=== PATIENT | female | born 2000 | race Caucasian/White ===

== ENCOUNTER 2023-05-28 13:34 | Outpatient (AMB) | payer OTHER, SELFPAY ==
[2023-05-28 13:35] VITALS: BP 102/68; PULSE 84; O2SAT 99; BMI 21.5
--- NOTE | 2023-05-28 13:35 | A.OFFPC_ITS ---
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 Accompanied by: Self / Same As Patient Allergies No Known Allergies Allergy (Verified 05/28/23 14:28) Medication List - Last Reconciled 05/28/23 by Jack Florian MD levonorgestrel-ethinyl estrad 0.1-20 mg-mcg (Vienva) 1 tab PO DAILY Tobacco use date assessed: 05/28/23 Dental Screening Dental Screen Date: 05/28/23 Did you have a dental visit in the last 12 months?: Yes Did you have a dental problem in the last 6 months where you did not have access to dental care?: No Was dental information given to patient?: Patient has dentist 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 Details Patient comes in today to establish care - is a new patient to the practice States that she has a history of asthma growing up but has never really had to use her rescue inhaler often until she contracted COVID last year Has been experiencing frequent asthma flare ups since States that she has not had any rescue inhaler as she has not seen her doctor in over 5 years now (due to some insurance issues/changes and she was not able to see her doctor again since) and she has just been using some OTC Primatene mist lately, with some relief of her asthma symptoms Adds that she has a history of migraine headaches and has been experiencing frequent headaches lately Is also concerned that she may be prediabetic as she has noticed over the past year that she has symptoms of increased fatigue, frequent thirst, urinary frequency and nocturia and she feels hungry often but she never feels full whenever she eats States that she has 2 uncles who has diabetes but no one else in her immediate family is a diabetic Relates also (+) Hx of anxiety and states that she used to be on Citalopram 20 mg QD but stopped taking her Rx when it ran out about 5 years ago and she could not get it refilled; would like to see if she can be started back on her Rx States that she is currently only taking her control pill (to help regulate her period) and she has been getting it from an online prescription website for the past 3 years States that menstrual periods are regular She denies any fever or sore throat; denies any headaches or dizziness Denies any chest pains No nausea/vomiting, no abdominal pain No change in habits noted She denies any acute urinary symptoms PFSH Medical History (Updated 05/29/23 @ 05:57 by Jack Florian MD) Anxiety Migraine Asthma Surgical History (Updated 05/28/23 @ 14:33 by Jack Florian MD) No pertinent past surgical history Family History (Updated 05/29/23 @ 05:44 by Jack Florian MD) Paternal Uncle Diabetes Other Bipolar 1 disorder Social History Housing: House Patient Tobacco Use Status: Never used Tobacco e-Cigarette/Vaping Use: Never Used service: No Current occupational status: employed Cognitive needs: No Hearing needs: No Vision needs: No Female Reproductive History Menstrual control method: pills Questionnaire PHQ-9 Over the last 2 weeks, how often have you been bothered by any of the following problems? 1. Little interest or pleasure in doing things: not at all 2. Feeling down, depressed, or hopeless: not at all 3. Trouble falling or staying asleep, or sleeping too much: not at all 4. Feeling tired or having little energy: not at all 5. Poor appetite or overeating: not at all 6. Feeling bad about yourself - or that you are a failure or have let yourself or your family down: not at all 7. Trouble concentrating on things, such as reading the newspaper or watching television: not at all 8. Moving or speaking so slowly that other people could have noticed. Or the opposite - being so fidgety or restless that you have been moving around a lot more than usual: not at all 9. Thoughts that you would be better off or of hurting yourself in some way: not at all Total score: 0 Depression Screening Interpretation: Negative [id number] - PHQ-9 Billing: Yes Source: Developed by Drs. Sang Bell, Natalia Alvarez, Robinson Todd and colleagues, with an educational priti from [employer]. Thrive Questionnaire Date Thrive assessed: 05/28/23 I am a: Patient What is your living situation today?: I have a steady place to live Within the past 12 months, did the food you bought not last and you didn't have the money to get more?: Never true Within the past 12 months, did you worry whether your food would run out before you got money to buy more?: Never true Do you have trouble paying for medicines?: No Do you have trouble getting transportation to medical appointments?: No Do you have trouble paying your heating and electricity bill?: No Do you have trouble taking care of your child, family member or friend?: No Do you have trouble with day-to-day activities such as bathing, preparing meals, shopping, managing finances, etc.?: No Are you currently unemployed and looking for a job?: No Are you interested in more education?: No Please select the resources that you would like help with: None Currently or been in a relationship where the following occur: no concerns reported AUDIT C Alcohol Use Questionnaire (AUDIT-C) 1. How often do you have a drink containing alcohol?: Never 3. How often do you have six or more drinks on one occasion?: Never Total Score: 0 Score Reviewed/Action Taken: Yes ROBBI-7 AMB Questionnaire ROBBI-7 Date ROBBI - 7 assessed: 05/28/23 Feeling nervous, anxious, or on edge: 1 = Several days Not being able to stop or control worryin = Not at all Worrying too much about different things: 0 = Not at all Trouble relaxin = Not at all Being so restless that it is hard to sit still: 0 = Not at all Becoming easily annoyed or irritable: 0 = Not at all Feeling afraid as if something awful might happen: 0 = Not at all Total ROBBI-7 score (0-4 normal; 5-9 mild; 10-14 moderate; 15-21 severe): 1 Source: Developed by Drs. Sang Bell, Natalia Alvarez, Robinson Todd and colleagues, with an educational priti from [employer]. Review of Systems Const Denies chills, Reports fatigue, Denies fever(s), Reports headache(s) (recurrent lately; associated with nausea and photophobia) and Denies malaise Eyes Denies blurry vision, Denies change in vision, Denies irritation and Denies itchy eyes ENT Denies dysphagia, Denies dizziness, Denies otalgia, Reports headache(s) (recurrent lately; associated with nausea and photophobia), Denies nasal congestion, Denies neck pain, Denies odynophagia, Denies sinus pain and Denies sore throat Card Denies chest pain, Denies rapid heart rate, Denies irregular heart rhythm, Denies palpitations and Reports dyspnea on exertion (at times) Resp Denies chest congestion (but chest feels tight often lately), Reports cough (occasional, non-productive), Reports dyspnea on exertion (at times) and Reports wheezing (occasionally) GI Denies abdominal pain, Denies bloating, Denies constipation, Denies dysphagia, Denies heartburn, Denies diarrhea, Denies nausea, Denies odynophagia and Denies vomiting Denies hematuria, Denies urinary frequency, Reports nocturia, Denies dysuria, Denies urinary incontinence and Denies urinary urgency Musc Denies back pain, Denies arthralgias, Denies joint swelling, Denies muscle weakness and Denies neck pain Skin/Breast Denies breast pain, Denies breast mass, Denies change in pigmentation, Denies lesions, Denies rash and Denies unusual bruising Neuro Denies dizziness, Reports headache(s) (recurrent lately; associated with nausea and photophobia) and Denies paresthesias Psych Reports anxiety and Denies depression Endo Reports fatigue, Reports polyphagia, Reports polydipsia, Reports polyuria and Denies palpitations Angel/Lymph Denies easy bruising Aller/Immun Denies itchy eyes and Reports wheezing (occasionally) Physical exam (Primary Care) Vital Signs: Last Vital Signs Pulse 84 05/28/23 13:35 BP 102/68 05/28/23 13:35 Pulse Ox 99 05/28/23 13:35 Oxygen Delivery Method Room Air 05/28/23 13:35 BMI result Body Mass Index 21.5 Tobacco/Smoking Status: Tobacco use Status Tobacco use date assessed 05/28/23 05/28/23 13:43 Patient Tobacco Use Status Never used Tobacco 05/28/23 13:43 e-Cigarette/Vaping Use Never Used 05/28/23 13:43 PHQ-9: PHQ-9 Score PHQ-9: Total score 0 05/28/23 14:36 Depression Screening Interpretation: Negative Thrive Assessment: Date of Thrive Assessment Date Thrive assessed 05/28/23 05/28/23 13:43 Currently or been in a relationship where the following occur: no concerns reported Const General: no acute distress, alert and awake Orientation/consciousness: patient oriented x3 HENMT Head: Yes normocephalic and Yes atraumatic Ears: external ears normal, TM's normal bilaterally and EAC's normal General nose exam: No nasal discharge present Face and sinus: Yes normal facial exam and Yes sinuses nontender Teeth and gingiva: dentition normal Throat: Yes posterior oropharynx normal and Yes tonsils normal (no TP congestion) Eyes Eyelids: Yes eyelids normal Conjunctivae: conjunctivae normal Pupils: Equal, round and reactive pupils present EOM: EOMs intact bilaterally Neck Neck: Yes no lymphadenopathy and Yes supple Thyroid: Thyroid normal Resp Auscultation: no rales, rhonchi (occasional) throughout, no wheezes and diminished lung sounds (slightly) bilateral Cardio Rate: regular rate Rhythm: regular rhythm Heart sounds: no murmurs GI Palpation (GI): Soft to palpation, nontender and No hepatosplenomegaly present Auscultation: normal bowel sounds General: Yes no CVA tenderness Back/Spine/Pelvis Back: no CVA tenderness Thoracic/Lumbar Spine: thoracic and lumbar spine normal to inspection Skin Lesions: no lesions Rashes: no rashes Neuro General: patient oriented x3, moves all extremities, no focal motor deficits and CN's II-XI intact bilaterally Cranial nerves: Yes Equal, round and reactive pupils present Cognition (Neuro): normal cognition Gait exam (Neuro): Normal gait present Extrem General: Yes no clubbing, cyanosis or edema Assessment and Plan Assessment & Plan (1) Annual physical exam: Code(s): Z00.00 - Encounter for general adult medical examination without abnormal findings Plan: Check labs (2) Asthma: Code(s): J45.909 - Unspecified asthma, uncomplicated Qualifiers: Asthma severity: mild Asthma persistence: unspecified Asthma complication type: unspecified Qualified Code(s): J45.909 - Unspecified asthma, uncomplicated Plan: Will start patient for now on Albuterol HFA 1 to 2 inhalations Q 6 hours PRN Will send her for chest x-rays as well for further evaluation as she reports experiencing frequent asthma flare ups often ever since she contracted COVID last year Am unable to assess at this time whether she will need maintenance therapy for her asthma or not - will see how often she has to use her rescue inhaler over the next month or two Have advised patient to stop using her Primatene mist as it contains epinephrine and is not advisable for long-term or frequent use (3) Migraine: Code(s): G43.909 - Migraine, unspecified, not intractable, without status migrainosus Qualifiers: Migraine type: without aura Status migrainosus presence: without status migrainosus Intractability: not intractable Qualified Code(s): G43.009 - Migraine without aura, not intractable, without status migrainosus Plan: Discussed avoidance of any potential migraine triggers Will start patient for now on Fioricet 1 capsule Q 6 to 8 hours PRN for headaches (4) Anxiety: Code(s): F41.9 - Anxiety disorder, unspecified Plan: Will start her back on Citalopram 20 mg QD (5) Prediabetes: Code(s): R73.03 - Prediabetes Plan: Per patient request, will send her for some labs to check/screen for hyperglycemia or diabetes as she has reportedly been experiencing symptoms of polydipsia, polyphagia, urinary frequency/nocturia and fatigue lately and she is concerned about her own risks for diabetes Plan Follow up in 2 months Orders: Orders Complete Blood Count Auto Diff 05/28/23 R53.83 - Other fatigue, Z00.00 - Encounter for general adult medical examination without abnormal findings Comprehensive Met. Panel 05/28/23 R35.89 - Other polyuria, R53.83 - Other fatigue, Z00.00 - Encounter for general adult medical examination without abnormal findings TSH reflex Free T4 05/28/23 R53.83 - Other fatigue, Z00.00 - Encounter for general adult medical examination without abnormal findings UA CC w/rflx Micro + Cult 05/28/23 R35.89 - Other polyuria, Z00.00 - Encounter for general adult medical examination without abnormal findings Hemoglobin A1c 05/28/23 R35.89 - Other polyuria, R73.01 - Impaired fasting glucose XR chest 2V 05/28/23 J45.909 - Unspecified asthma, uncomplicated, J98.8 - Other specified respiratory disorders Cholesterol 09/18/23 Z00.00 - Encounter for general adult medical examination without abnormal findings Vitamin D 25-OH Total 05/28/23 E55.9 - Vitamin D deficiency, unspecified, R53.83 - Other fatigue, Z00.00 - Encounter for general adult medical examination without abnormal findings Medications: New Ventolin HFA 90 mcg/actuation (albuterol sulfate) 2 puffs inhalation Q6H 30 days PRN 18 grams 5RF shortness of breath or wheezing NS J45.909 - Unspecified asthma, uncomplicated chpviqigji-[id number]-[id number] 50-300-40 mg 1 cap PO Q8H PRN 30 caps 1RF pain G43.909 - Migraine, unspecified, not intractable, without status migrainosus citalopram 20 mg PO DAILY 30 days 30 tabs 2RF F41.9 - Anxiety disorder, unspecified Coding Level of Care Code New Pt Prev Care [id number] Diagnoses Annual physical exam Z00.00 Mild asthma, unspecified whether complicated, unspecified whether persistent J45.909 Asthma severity: mild Asthma persistence: unspecified Asthma complication type: unspecified Migraine without aura and without status migrainosus, not intractable G43.009 Migraine type: without aura Status migrainosus presence: without status migrainosus Intractability: not intractable Anxiety F41.9 Prediabetes R73.03
== END 2023-05-28 14:49 | disposition home or self-care (01) ==
PROVIDERS: Visit Provider Internal Medicine
DX: Z00.00 Encounter for general adult medical examination without abnormal findings (principal); J45.909 Unspecified asthma, uncomplicated; G43.009 Migraine without aura, not intractable, without status migrainosus; F41.9 Anxiety disorder, unspecified; R73.03 Prediabetes
CPT/HCPCS: 99385

== ENCOUNTER 2023-05-28 15:02 | Outpatient (REF) | payer OTHER, SELFPAY ==
--- NOTE | ~2023-05-28 | XR_ITS ---
EXAMINATION: XR CHEST CLINICAL INFORMATION: Respiratory disorders COMPARISON: None available. TECHNIQUE: 2 views of the chest were obtained. FINDINGS: The lungs are well-inflated. Heart size is normal. There is no gross pneumothorax. No pleural effusion. Mild dextroscoliosis of the thoracolumbar spine. No focal consolidation to suggest pneumonia. XR/XR chest 2V IMPRESSION: No evidence of pneumonia.
[2023-05-28 15:25] LABS: MANUAL DIFF FLAG NO
[2023-05-28 16:45] LABS: Basophils Percent Auto 0.3 % (0-2); Eosinophils Absolute Auto 0.1 X10*3/uL (0.0-0.4); Eosinophils Percent Auto 0.6 % (0-4); Hematocrit 39.2 % (37.0-47.0); Hemoglobin 13.1 g/dl (12.0-16.0); Imm Gran Abs Auto 0.03 X10*3/uL (0.00-0.03); Imm Gran Pct Auto 0.3 % (0.0-0.4); Lymphocytes Absolute Auto 2.9 X10*3/uL (1.2-4.9); Lymphocytes Percent Auto 30.8 % (20-40); Mean Corpuscular HGB Conc 33.4 g/dl (31.0-35.0); Mean Corpuscular Volume 95.6 fL (80.0-98.0); Mean Platelet Volume 10.6 fL (9.4-12.3); Monocytes Absolute Auto 0.9 X10*3/uL (0.1-1.2); Monocytes Percent Auto 9.5 % (2-11); Neutrophils Absolute Auto 5.5 x10*3/uL (2.0-8.3); Neutrophils Percent Auto 58.5 % (45-73); Platelet Count 216 X10*3/uL (160-400); Red Cell Distribution Width 11.6 % (11.0-16.0); White Blood Count 9.4 X10*3/uL (4.8-10.8)
[2023-05-28 16:56] LABS: Estimated Average Glucose 100 mg/dL; Hemoglobin A1c % 5.1 % (<6.0)
[2023-05-28 17:23] LABS: Alanine Aminotransferase 11 U/L (0-31); Albumin Level 4.3 g/dL (3.5-5.0); Alkaline Phosphatase 53 U/L (39-117); Anion Gap 12 (12-20); Aspartate Amino Transferase 18 U/L (5-31); Bilirubin Total 0.5 mg/dL (0.0-1.0); Blood Urea Nitrogen 8 mg/dL (9-16); Calcium 9.2 mg/dL (8.4-10.2); Carbon Dioxide 26 mmol/L (22-29); Chloride 104 mmol/L (96-108); Cholesterol 161 mg/dL (<200); Estimated Glomerular Filt Rate > 60; Glucose Random 73 mg/dL (60-115); Potassium 3.5 mmol/L (3.3-5.1); Sodium 138 mmol/L (135-145); Total Protein 6.8 g/dL (6.5-8.0)
[2023-05-28 17:24] LABS: Appearance Urine Clear; Color Urine Yellow; Glucose Urine UA Negative (Negative); Leukocyte Esterase Urine Trace (Negative); Nitrite Urine Negative (Negative); PH 5.5 (5.0-9.0); UMIC TRIGGER UACC YES; Urine Blood Negative (Negative); Urine Ketones Negative (Negative); Urine Protein Negative (Neg-Trace)
[2023-05-28 17:31] LABS: Bacteria Urine None Seen (None Seen); Hyaline Casts Urine 0-2 /LPF (0-2); RBC Urine 0-2 /HPF (0-2); WBC Urine 0-5 /HPF (0-5)
[2023-05-28 17:45] LABS: TSH reflex Free T4 2.14 uIU/mL (0.32-4.0); Vitamin D 25-OH Total 49.9 ng/mL (>30)
== END 2023-05-28 15:03 | disposition home or self-care (01) ==
LOC: HO.LAB 15:02
PROVIDERS: PCP Internal Medicine; Visit Provider Internal Medicine
DX: Z00.00 Encounter for general adult medical examination without abnormal findings (principal); R35.89 Other polyuria; J98.8 Other specified respiratory disorders; J45.909 Unspecified asthma, uncomplicated; E55.9 Vitamin D deficiency, unspecified; R53.83 Other fatigue; R73.01 Impaired fasting glucose
CPT/HCPCS: 36415; 71046; 80053; 81001; 81003; 82306; 82465; 83036; 84443; 85025

== ENCOUNTER 2023-07-23 14:21 | Outpatient (AMB) | payer OTHER, SELFPAY ==
[2023-07-23 14:23] VITALS: BP 100/76; PULSE 95; O2SAT 98; BMI 22.1
--- NOTE | 2023-07-23 14:23 | A.OFFPC_ITS ---
Vital Signs 07/23/23 14:23 Height 5 ft 4 in Weight 129 lb BMI 22.1 BP 100/76 Blood Pressure Location Lt brachial Position Sitting Pulse 95 Pulse Source Pulse Oximeter Pulse Oximetry (%) 98 Oxygen Delivery Method Room Air Intake Visit Reasons: asthma, migraine, anxiety Per Diem Physical Therapist Required: No Accompanied by: Self / Same As Patient Allergies No Known Allergies [No Known Allergies*] Allergy (Verified 02/19/24 09:51) Medication List - Last Reconciled 02/19/24 by Jack Florian MD [id number] 50-300-40 mg 1 cap PO Q8H PRN levonorgestrel-ethinyl estrad 0.1-20 mg-mcg (Vienva) 1 tab PO DAILY sertraline 25 mg PO DAILY 30 days Ventolin HFA 90 mcg/actuation (albuterol sulfate) 2 puffs inhalation Q6H PRN 30 days NS Tobacco use date assessed: 07/23/23 Dental Screening Dental Screen Date: 07/23/23 Did you have a dental visit in the last 12 months?: Yes Did you have a dental problem in the last 6 months where you did not have access to dental care?: No Was dental information given to patient?: Patient has dentist HPI asthma, migraine, anxiety HPI Details Patient comes in today for her follow up visit States that she feels okay She denies any headaches or dizziness Denies any chest pains, no shortness of breath - states that her asthma seems to be well-controlled and she now only has to use her Albuterol inhaler when needed, usually about 3 times a week or less No nausea /vomiting, no abdominal pain No change in bowel habits noted Would like to go over the results of all of her labs and chest x-rays done a couple of months ago States that she continues to experience increased anxiety - was not able to tolerate the Citalopram that she was started on previously due to increased dry mouth and some somnolence while she was on the medication and she stopped taking the medication a while back [facility] Medical History Anxiety Asthma Migraine Surgical History No pertinent past surgical history Family History Paternal Uncle Diabetes Other Bipolar 1 disorder Social History Housing: House Patient Tobacco Use Status: Never used Tobacco e-Cigarette/Vaping Use: Never Used service: No Current occupational status: employed Cognitive needs: No Hearing needs: No Vision needs: No Questionnaire PHQ-9 Over the last 2 weeks, how often have you been bothered by any of the following problems? 1. Little interest or pleasure in doing things: not at all 2. Feeling down, depressed, or hopeless: not at all 3. Trouble falling or staying asleep, or sleeping too much: not at all 4. Feeling tired or having little energy: not at all 5. Poor appetite or overeating: not at all 6. Feeling bad about yourself - or that you are a failure or have let yourself or your family down: not at all 7. Trouble concentrating on things, such as reading the newspaper or watching television: not at all 8. Moving or speaking so slowly that other people could have noticed. Or the opposite - being so fidgety or restless that you have been moving around a lot more than usual: not at all 9. Thoughts that you would be better off or of hurting yourself in some way: not at all Total score: 0 Depression Screening Interpretation: Negative Depression Screening Done: Yes 91334 - PHQ-9 Billing: Yes Source: Developed by Drs. Sang Bell, Natalia Alvarez, Robinson Todd and colleagues, with an educational priti from [employer]. Thrive Questionnaire Date Thrive assessed: 07/23/23 I am a: Patient What is your living situation today?: I have a steady place to live Within the past 12 months, did the food you bought not last and you didn't have the money to get more?: Never true Within the past 12 months, did you worry whether your food would run out before you got money to buy more?: Never true Do you have trouble paying for medicines?: No Do you have trouble getting transportation to medical appointments?: No Do you have trouble paying your heating and electricity bill?: No Do you have trouble taking care of your child, family member or friend?: No Do you have trouble with day-to-day activities such as bathing, preparing meals, shopping, managing finances, etc.?: No Are you currently unemployed and looking for a job?: No Are you interested in more education?: No Please select the resources that you would like help with: None Currently or been in a relationship where the following occur: no concerns reported AUDIT C Alcohol Use Questionnaire (AUDIT-C) 1. How often do you have a drink containing alcohol?: Never 3. How often do you have six or more drinks on one occasion?: Never Total Score: 0 Score Reviewed/Action Taken: Yes ROBBI-7 AMB Questionnaire ROBBI-7 Date ROBBI - 7 assessed: 07/23/23 Feeling nervous, anxious, or on edge: 1 = Several days Not being able to stop or control worryin = Not at all Worrying too much about different things: 0 = Not at all Trouble relaxin = Not at all Being so restless that it is hard to sit still: 0 = Not at all Becoming easily annoyed or irritable: 0 = Not at all Feeling afraid as if something awful might happen: 0 = Not at all Total ROBBI-7 score (0-4 normal; 5-9 mild; 10-14 moderate; 15-21 severe): 1 Source: Developed by Drs. Sang Bell, Natalia Alvarez, Robinson Todd and colleagues, with an educational priti from [employer]. Review of Systems Const Denies chills, Denies fatigue, Denies fever(s) and Denies headache(s) ENT Denies dysphagia, Denies dizziness, Denies otalgia, Denies headache(s), Denies neck pain, Denies odynophagia and Denies sore throat Card Denies chest pain, Denies palpitations and Denies dyspnea Resp Denies cough, Denies dyspnea and Denies wheezing GI Denies abdominal pain, Denies constipation, Denies dysphagia, Denies heartburn, Denies diarrhea, Denies nausea, Denies odynophagia and Denies vomiting Denies difficulty voiding, Denies nocturia, Denies dysuria and Denies urinary urgency Musc Denies neck pain Neuro Denies dizziness and Denies headache(s) Psych Reports anxiety and Denies depression Endo Denies fatigue and Denies palpitations Aller/Immun Denies wheezing Physical exam (Primary Care) Vital Signs: Last Vital Signs Pulse 95 07/23/23 14:23 BP 100/76 07/23/23 14:23 Pulse Ox 98 07/23/23 14:23 Oxygen Delivery Method Room Air 07/23/23 14:23 BMI result Body Mass Index 22.1 Tobacco/Smoking Status: Tobacco use Status Tobacco use date assessed 07/23/23 07/23/23 14:25 Patient Tobacco Use Status Never used Tobacco 07/23/23 14:25 e-Cigarette/Vaping Use Never Used 07/23/23 14:25 PHQ-9: PHQ-9 Score PHQ-9: Total score 0 07/24/23 05:42 Depression Screening Interpretation: Negative Thrive Assessment: Date of Thrive Assessment Date Thrive assessed 07/23/23 07/23/23 14:25 Currently or been in a relationship where the following occur: no concerns reported Const General: no acute distress and alert HENMT Throat: Yes posterior oropharynx normal and Yes tonsils normal (no TP congestion) Neck Neck: Yes no lymphadenopathy and Yes supple Thyroid: Thyroid normal Resp Auscultation: clear to auscultation bilaterally, no rales and no wheezes Cardio Rate: regular rate Rhythm: regular rhythm Heart sounds: no murmurs GI Palpation (GI): Soft to palpation and nontender Auscultation: normal bowel sounds General: Yes no CVA tenderness Back/Spine/Pelvis Back: no CVA tenderness Skin Rashes: no rashes Extrem General: Yes no clubbing, cyanosis or edema Results Reviewed Results Reviewed: Laboratory Tests 05/28/23 05/28/23 05/28/23 15:19 15:23 15:23 WBC 9.4 Hgb 13.1 Hct 39.2 Plt Count 216 Sodium 138 Potassium 3.5 Creatinine 0.76 Estimated GFR > 60 Random Glucose 73 Hemoglobin A1c % 5.1 Calcium 9.2 AST 18 ALT 11 Cholesterol 161 25-OH Vitamin D Total 49.9 TSH 2.14 Ur Specific [place] 1.010 Urine Protein Negative Urine Glucose (UA) Negative Urine Blood Negative Assessment and Plan Assessment & Plan (1) Asthma: Code(s): J45.909 - Unspecified asthma, uncomplicated Qualifiers: Asthma severity: mild Asthma persistence: intermittent Asthma complication type: uncomplicated Qualified Code(s): J45.20 - Mild intermittent asthma, uncomplicated Plan: Well-controlled lately Continue Albuterol HFA 1 to 2 inhalations Q 6 hours PRN (2) Migraine: Code(s): G43.909 - Migraine, unspecified, not intractable, without status migrainosus Qualifiers: Migraine type: unspecified Status migrainosus presence: without status migrainosus Intractability: not intractable Qualified Code(s): G43.909 - Migraine, unspecified, not intractable, without status migrainosus Plan: Patient states that her headaches have been well-controlled as welllately Reinforced again avoidance of any potential migraine triggers Continue Fioricet 1 capsule Q 6 to 8 hours PRN for headaches (3) Anxiety: Code(s): F41.9 - Anxiety disorder, unspecified Plan: Will start her on Sertraline 25 mg QD She was unable to tolerate her previous Rx (Citalopram) due to side effects (dry mouth and somnolence) and she self-discontinued the medication after a while Plan Results of her labs done a couple of months ago reviewed and discussed with patient - is advised that her labs all came back within normal range Follow up in 4 months Medications: New sertraline 25 mg PO DAILY 30 tabs 3RF anxiety 30 days F41.9 - Anxiety disorder, unspecified Discontinued citalopram Discontinued Reason: Patient no longer taking 20 mg PO DAILY 30 days 30 tabs 2RF F41.9 - Anxiety disorder, unspecified Coding Level of Care Code Est Pt Level 4 (11918) Diagnoses Mild intermittent asthma without complication J45.20 Asthma severity: mild Asthma persistence: intermittent Asthma complication type: uncomplicated Migraine without status migrainosus, not intractable, unspecified migraine type G43.909 Migraine type: unspecified Status migrainosus presence: without status migrainosus Intractability: not intractable Anxiety F41.9
== END 2023-07-23 15:03 | disposition home or self-care (01) ==
PROVIDERS: PCP Internal Medicine; Visit Provider Internal Medicine
DX: J45.20 Mild intermittent asthma, uncomplicated (principal); G43.909 Migraine, unspecified, not intractable, without status migrainosus; F41.9 Anxiety disorder, unspecified
CPT/HCPCS: 99499

== ENCOUNTER 2023-08-27 09:08 | Outpatient (AMB) | payer OTHER, SELFPAY ==
[2023-08-27 09:22] VITALS: BP 110/60; PULSE 96; TEMP 36.6; O2SAT 99; BMI 21.1
--- NOTE | 2023-08-27 09:22 | AM.OFFWIN_ITS ---
Intake Vital Signs 08/27/23 09:22 Height 5 ft 4 in Weight 123 lb BMI 21.1 BP 110/60 Blood Pressure Location Rt brachial Position Sitting Pulse 96 Pulse Source Pulse Oximeter Temp 97.9 F Pulse Oximetry (%) 99 Oxygen Delivery Method Room Air Intake Visit Reasons: EP, sore throat ([phone]) Intake Note: pt is here today for sore throat started sunday Patient Tobacco Use Status: Never used Tobacco Allergies No Known Allergies [No Known Allergies*] Allergy (Verified 08/27/23 09:23) Do you need a note to return to daycare/school/sports/work: No HPI HPI Comments History of Present Illness Details Chante is a very pleasant 22 year old female who presented to the walk- in clinic for sick visit with complaints of sore throat for last 3 days. States bodyaches for 2 days that have since resolved. She denies fever, headache, cough, shortness of breath, chest pain. Denies sick contacts. [facility] Medical History Anxiety Asthma Migraine Surgical History No pertinent past surgical history Family History Paternal Uncle Diabetes Other Bipolar 1 disorder Social History Housing: House Patient Tobacco Use Status: Never used Tobacco e-Cigarette/Vaping Use: Never Used service: No Current occupational status: employed Cognitive needs: No Hearing needs: No Vision needs: No Review of Systems Const All systems reviewed & are unremarkable except as noted in HPI and below Physical Exam Vital Signs: Last Vital Signs Temp 97.9 F 08/27/23 09:22 Pulse 96 08/27/23 09:22 BP 110/60 08/27/23 09:22 Pulse Ox 99 08/27/23 09:22 Oxygen Delivery Method Room Air 08/27/23 09:22 BMI result Body Mass Index 21.1 General: awake, alert, oriented. Answers questions appropriately. Fully engaged in examination. Skin: warm, dry, intact HEENT: TMs intact bilaterally. Posterior pharynx without erythema or exudate. no lymphadenopathy. Sclera without injection Cardiac: External chest normal in appearance. Respiratory: No cough, audible wheezing or stridor. LSCTAB. Abdomen: without gross distension. Neurological: Oriented to person, place, time and situation. Thought process in tact. Psychiatric: Appropriate mood and affect. Good judgment and insight. Results AMB Rapid Strep AMB Rapid Strep Negative Last Edit by Eric Mehta CMA on 08/27/23 09 :35 Results Reviewed Results Reviewed: Laboratory Last Values Strep Scn Rapid Clinic Negative 08/27/23 09:34 Assessment & Plan Assessment & Plan (1) Sore throat (viral): Code(s): J02.8 - Acute pharyngitis due to other specified organisms; B97.89 - Other viral agents as the cause of diseases classified elsewhere Plan Viral sore throat, rapid strep negative today. Encouraged conservative measures, drink plenty of fluid, rest, tylenol and motri n as needed. Salt water gargles. Follow up with pcp or return to the walk-in clinic for any new or worsening symptoms. Orders: Orders AMB Rapid Strep Screen Today Z13.9 - Encounter for screening, unspecified Coding Level of Care Code Est Pt Level 2 (03665) Diagnoses Sore throat (viral) J02.8; B97.89
== END 2023-08-27 10:17 | disposition home or self-care (01) ==
PROVIDERS: PCP Physician Assistant; Visit Provider Registered Nurse Emergency
DX: J02.8 Acute pharyngitis due to other specified organisms (principal); B97.89 Other viral agents as the cause of diseases classified elsewhere; J02.9 Acute pharyngitis, unspecified
CPT/HCPCS: 87880; 99212

== ENCOUNTER 2024-02-19 09:20 | Outpatient (AMB) | payer OTHER, SELFPAY ==
[2024-02-19 09:22] VITALS: BP 108/70; PULSE 86; O2SAT 99; BMI 21.5
--- NOTE | 2024-02-19 09:22 | A.OFFPC_ITS ---
Vital Signs 02/19/24 09:22 Height 5 ft 4 in Weight 125 lb BMI 21.5 BP 108/70 Blood Pressure Location Lt brachial Position Sitting Pulse 86 Pulse Source Pulse Oximeter Pulse Oximetry (%) 99 Oxygen Delivery Method Room Air Intake Visit Reasons: 4 month f/u Rn Support Services Required: No Allergies No Known Allergies [No Known Allergies*] Allergy (Verified 02/19/24 09:51) Medication List - Last Reconciled 02/19/24 by Jack Florian MD [id number] 50-300-40 mg 1 cap PO Q8H PRN levonorgestrel-ethinyl estrad 0.1-20 mg-mcg (Vienva) 1 tab PO DAILY sertraline 25 mg PO DAILY 30 days Ventolin HFA 90 mcg/actuation (albuterol sulfate) 2 puffs inhalation Q6H PRN 30 days NS Tobacco use date assessed: 02/19/24 Dental Screening Dental Screen Date: 02/19/24 HPI 4 month f/u HPI Details Patient comes in today for her follow up visit States that she feels okay She denies any increased headaches or dizziness - states that she gets headaches very rarely nowadays Denies any chest pains, no SOB - states that she uses her rescue inhaler only occasionally No nausea/vomiting, no abdominal pain No change in bowel habits noted States that her anxiety and mood has been well-controlled on her current Rx ( Sertraline) [facility] Medical History Anxiety Asthma Migraine Surgical History No pertinent past surgical history Family History Paternal Uncle Diabetes Other Bipolar 1 disorder Social History Housing: House Patient Tobacco Use Status: Never used Tobacco e-Cigarette/Vaping Use: Never Used service: No Current occupational status: employed Cognitive needs: No Hearing needs: No Vision needs: No Questionnaire PHQ-9 Over the last 2 weeks, how often have you been bothered by any of the following problems? 1. Little interest or pleasure in doing things: not at all 2. Feeling down, depressed, or hopeless: not at all 3. Trouble falling or staying asleep, or sleeping too much: not at all 4. Feeling tired or having little energy: not at all 5. Poor appetite or overeating: not at all 6. Feeling bad about yourself - or that you are a failure or have let yourself or your family down: not at all 7. Trouble concentrating on things, such as reading the newspaper or watching television: not at all 8. Moving or speaking so slowly that other people could have noticed. Or the opposite - being so fidgety or restless that you have been moving around a lot more than usual: not at all 9. Thoughts that you would be better off or of hurting yourself in some way: not at all Total score: 0 Depression Screening Interpretation: Negative Depression Screening Done: Yes 81654 - PHQ-9 Billing: Yes Source: Developed by Drs. Sang Bell, Natalia Alvarez, Robinson Todd and colleagues, with an educational priti from [employer]. Thrive Questionnaire Date Thrive assessed: 02/19/24 I am a: Patient What is your living situation today?: I have a steady place to live Within the past 12 months, did the food you bought not last and you didn't have the money to get more?: Never true Within the past 12 months, did you worry whether your food would run out before you got money to buy more?: Never true Do you have trouble paying for medicines?: No Do you have trouble getting transportation to medical appointments?: No Do you have trouble paying your heating and electricity bill?: No Do you have trouble taking care of your child, family member or friend?: No Do you have trouble with day-to-day activities such as bathing, preparing meals, shopping, managing finances, etc.?: No Are you currently unemployed and looking for a job?: No Are you interested in more education?: No Please select the resources that you would like help with: None Currently or been in a relationship where the following occur: no concerns reported THRIVE Score: 0 AUDIT C Alcohol Use Questionnaire (AUDIT-C) 1. How often do you have a drink containing alcohol?: Never 3. How often do you have six or more drinks on one occasion?: Never Total Score: 0 Score Reviewed/Action Taken: Yes ROBBI-7 AMB Questionnaire ROBBI-7 Date ROBBI - 7 assessed: 02/19/24 Feeling nervous, anxious, or on edge: 1 = Several days Not being able to stop or control worryin = Not at all Worrying too much about different things: 0 = Not at all Trouble relaxin = Not at all Being so restless that it is hard to sit still: 0 = Not at all Becoming easily annoyed or irritable: 0 = Not at all Feeling afraid as if something awful might happen: 0 = Not at all Total ROBBI-7 score (0-4 normal; 5-9 mild; 10-14 moderate; 15-21 severe): 1 Source: Developed by Drs. Sang Bell, Natalia Alvarez, Robinson Todd and colleagues, with an educational priti from [employer]. Review of Systems Const Denies chills, Denies fatigue, Denies fever(s) and Denies headache(s) ENT Denies dysphagia, Denies dizziness, Denies otalgia, Denies headache(s), Denies neck pain, Denies odynophagia and Denies sore throat Card Denies chest pain, Denies palpitations and Denies dyspnea Resp Denies cough and Denies dyspnea GI Denies abdominal pain, Denies constipation, Denies dysphagia, Denies heartburn, Denies diarrhea, Denies nausea, Denies odynophagia and Denies vomiting Denies difficulty voiding, Denies nocturia, Denies dysuria and Denies urinary urgency Musc Denies back pain and Denies neck pain Skin/Breast Denies rash Neuro Denies dizziness and Denies headache(s) Endo Denies fatigue and Denies palpitations Physical exam (Primary Care) Vital Signs: Last Vital Signs Pulse 86 02/19/24 09:22 BP 108/70 02/19/24 09:22 Pulse Ox 99 02/19/24 09:22 Oxygen Delivery Method Room Air 02/19/24 09:22 BMI result Body Mass Index 21.5 Tobacco/Smoking Status: Tobacco use Status Tobacco use date assessed 02/19/24 02/19/24 09:23 Patient Tobacco Use Status Never used Tobacco 02/19/24 09:23 e-Cigarette/Vaping Use Never Used 02/19/24 09:23 PHQ-9: PHQ-9 Score PHQ-9: Total score 0 02/19/24 09:23 Depression Screening Interpretation: Negative Thrive Assessment: Date of Thrive Assessment Date Thrive assessed 02/19/24 02/19/24 09:23 Currently or been in a relationship where the following occur: no concerns reported Const General: no acute distress and alert HENMT Throat: Yes posterior oropharynx normal and Yes tonsils normal (no TP congestion) Neck Neck: Yes no lymphadenopathy and Yes supple Thyroid: Thyroid normal Resp Auscultation: clear to auscultation bilaterally, no rales and no wheezes Cardio Rate: regular rate Rhythm: regular rhythm Heart sounds: no murmurs GI Palpation (GI): Soft to palpation and nontender Auscultation: normal bowel sounds General: Yes no CVA tenderness Back/Spine/Pelvis Back: no CVA tenderness Skin Rashes: no rashes Extrem General: Yes no clubbing, cyanosis or edema Assessment and Plan Assessment & Plan (1) Asthma: Code(s): J45.909 - Unspecified asthma, uncomplicated Qualifiers: Asthma severity: mild Asthma persistence: intermittent Asthma complication type: uncomplicated Qualified Code(s): J45.20 - Mild intermittent asthma, uncomplicated Plan: Controlled - continue Albuterol HFA 1 to 2 inhalations Q 6 hours PRN (2) Migraine: Code(s): G43.909 - Migraine, unspecified, not intractable, without status migrainosus Qualifiers: Migraine type: unspecified Status migrainosus presence: without status migrainosus Intractability: not intractable Qualified Code(s): G43.909 - Migraine, unspecified, not intractable, without status migrainosus Plan: Patient states that her headaches have also been well-controlled lately Reinforced again avoidance of any potential migraine triggers Continue Fioricet 1 capsule Q 6 to 8 hours PRN for headaches (3) Anxiety: Code(s): F41.9 - Anxiety disorder, unspecified Plan: Continue Sertraline 25 mg QD - states that her anxiety has been doing much better on her Rx and she's had no issues or side effects with Sertraline Plan To return in 6 months for her next annual physical examination Coding Level of Care Code Est Pt Level 3 (25621) Diagnoses Mild intermittent asthma without complication J45.20 Asthma severity: mild Asthma persistence: intermittent Asthma complication type: uncomplicated Migraine without status migrainosus, not intractable, unspecified migraine type G43.909 Migraine type: unspecified Status migrainosus presence: without status migrainosus Intractability: not intractable Anxiety F41.9
== END 2024-02-19 09:59 | disposition home or self-care (01) ==
PROVIDERS: PCP Internal Medicine; Visit Provider Internal Medicine
DX: J45.20 Mild intermittent asthma, uncomplicated (principal); G43.909 Migraine, unspecified, not intractable, without status migrainosus; F41.9 Anxiety disorder, unspecified
CPT/HCPCS: 99213

== ENCOUNTER 2024-08-25 12:23 | Outpatient (AMB) | payer OTHER, SELFPAY ==
--- NOTE | 2024-08-25 12:33 | A.OFFPC_ITS ---
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: No Accompanied by: Self / Same As Patient Allergies No Known Allergies [No Known Allergies*] Allergy (Verified 08/25/24 12:47) Medication List - Last Reconciled 08/25/24 by Jack Florian MD [id number]-[id number] [id number] mg 1 cap PO Q8H PRN levonorgestrel-ethinyl estrad 0.1-20 mg-mcg (Vienva) 1 tab PO DAILY sertraline 25 mg PO DAILY 30 days Ventolin HFA 90 mcg/actuation (albuterol sulfate) 2 puffs inhalation Q6H PRN 30 days NS Tobacco use date assessed: 08/25/24 Dental Screening Dental Screen Date: 08/25/24 Did you have a dental visit in the last 12 months?: Yes Did you have a dental problem in the last 6 months where you did not have access to dental care?: No Was dental information given to patient?: Patient has dentist HPI Annual Exam HPI Details Patient comes in today for her annual physical examination States that she feels okay except for some bouts of fatigue at times She denies any headaches or dizziness Denies any chest pains, no SOB No nausea/vomiting, no abdominal pain No change in bowel habits noted She denies any acute urinary symptoms States that she normally gets about 6 hours of sleep a night - denies any trouble sleeping and states that she just goes to bed very late at night She is reportedly up-to-date with her annual gynecology exam and pap smear She currently takes Vienva for control - states that she just gets this Rx online States that her anxiety is currently doing very well on her current Rx of Sertraline 25 mg QD She is also a vegetarian and has been for about 6 years now [facility] Medical History Anxiety Asthma Migraine Surgical History No pertinent past surgical history Family History Paternal Uncle Diabetes Other Bipolar 1 disorder Social History (Updated 08/25/24 @ 13:13 by Jack Florian MD) Housing: House Patient Tobacco Use Status: Never used Tobacco e-Cigarette/Vaping Use: Never Used service: No Current occupational status: employed Cognitive needs: No Hearing needs: No Vision needs: No Questionnaire PHQ-9 Over the last 2 weeks, how often have you been bothered by any of the following problems? 1. Little interest or pleasure in doing things: not at all 2. Feeling down, depressed, or hopeless: not at all 3. Trouble falling or staying asleep, or sleeping too much: not at all 4. Feeling tired or having little energy: several days 5. Poor appetite or overeating: not at all 6. Feeling bad about yourself - or that you are a failure or have let yourself or your family down: not at all 7. Trouble concentrating on things, such as reading the newspaper or watching television: not at all 8. Moving or speaking so slowly that other people could have noticed. Or the opposite - being so fidgety or restless that you have been moving around a lot more than usual: not at all 9. Thoughts that you would be better off or of hurting yourself in some way: not at all Total score: 1 Depression Screening Interpretation: Negative Depression Screening Done: Yes 47305 - PHQ-9 Billing: Yes Source: Developed by Drs. Sang Bell, Natalia Alvarez, Robinson Todd and colleagues, with an educational priti from [employer]. Thrive Questionnaire Date Thrive assessed: 08/25/24 I am a: Patient What is your living situation today?: I have a steady place to live Within the past 12 months, did the food you bought not last and you didn't have the money to get more?: Never true Within the past 12 months, did you worry whether your food would run out before you got money to buy more?: Never true Do you have trouble paying for medicines?: No Do you have trouble getting transportation to medical appointments?: No Do you have trouble paying your heating and electricity bill?: No Do you have trouble taking care of your child, family member or friend?: No Do you have trouble with day-to-day activities such as bathing, preparing meals, shopping, managing finances, etc.?: No Are you currently unemployed and looking for a job?: No Are you interested in more education?: No Please select the resources that you would like help with: None Currently or been in a relationship where the following occur: No concerns reported THRIVE Score: 0 AUDIT C Alcohol Use Questionnaire (AUDIT-C) 1. How often do you have a drink containing alcohol?: Never 3. How often do you have six or more drinks on one occasion?: Never Total Score: 0 Score Reviewed/Action Taken: Yes ROBBI-7 AMB Questionnaire ROBBI-7 Date ROBBI - 7 assessed: 08/25/24 Feeling nervous, anxious, or on edge: 1 = Several days Not being able to stop or control worryin = Not at all Worrying too much about different things: 1 = Several days Trouble relaxin = Not at all Being so restless that it is hard to sit still: 0 = Not at all Becoming easily annoyed or irritable: 0 = Not at all Feeling afraid as if something awful might happen: 0 = Not at all Total ROBBI-7 score (0-4 normal; 5-9 mild; 10-14 moderate; 15-21 severe): 2 Source: Developed by Drs. Sang Bell, Natalia Alvarez, Robinson Todd and colleagues, with an educational priti from [employer]. Review of Systems Const Denies chills, Reports fatigue, Denies fever(s), Denies headache(s) and Denies malaise Eyes Denies blurry vision, Denies change in vision, Denies irritation and Denies itchy eyes ENT Denies dysphagia, Denies dizziness, Denies otalgia, Denies headache(s), Denies nasal congestion, Denies neck pain, Denies odynophagia, Denies sinus pain and Denies sore throat Card Denies chest pain, Denies rapid heart rate, Denies irregular heart rhythm, Denies palpitations and Denies dyspnea Resp Denies chest congestion, Denies cough, Denies dyspnea and Denies wheezing GI Denies abdominal pain, Denies bloating, Denies constipation, Denies dysphagia, Denies heartburn, Denies diarrhea, Denies nausea, Denies odynophagia and Denies vomiting Denies hematuria, Denies urinary frequency, Denies dysuria, Denies urinary incontinence and Denies urinary urgency Musc Denies back pain, Denies arthralgias, Denies joint swelling, Denies muscle weakness and Denies neck pain Skin/Breast Denies breast pain, Denies breast mass, Denies change in pigmentation, Denies lesions, Denies rash and Denies unusual bruising Neuro Denies dizziness, Denies headache(s) and Denies paresthesias Psych Denies anxiety and Denies depression Endo Reports fatigue and Denies palpitations Angel/Lymph Denies easy bruising Aller/Immun Denies itchy eyes and Denies wheezing Physical exam (Primary Care) Vital Signs: Last Vital Signs Pulse 92 08/25/24 12:34 BP 100/62 08/25/24 12:34 Pulse Ox 98 08/25/24 12:34 Oxygen Delivery Method Room Air 08/25/24 12:34 BMI result Body Mass Index 21.8 Tobacco/Smoking Status: Tobacco use Status Tobacco use date assessed 08/25/24 08/25/24 12:41 Patient Tobacco Use Status Never used Tobacco 08/25/24 12:41 e-Cigarette/Vaping Use Never Used 08/25/24 12:41 PHQ-9: PHQ-9 Score PHQ-9: Total score 1 08/25/24 12:41 Depression Screening Interpretation: Negative Thrive Assessment: Date of Thrive Assessment Date Thrive assessed 08/25/24 08/25/24 12:41 Currently or been in a relationship where the following occur: No concerns reported Const General: no acute distress, alert and awake Orientation/consciousness: patient oriented x3 HENMT Head: Yes normocephalic and Yes atraumatic Ears: external ears normal, TM's normal bilaterally and EAC's normal General nose exam: No nasal discharge present Face and sinus: Yes normal facial exam and Yes sinuses nontender Teeth and gingiva: dentition normal Throat: Yes posterior oropharynx normal and Yes tonsils normal (no TP congestion) Eyes Eyelids: Yes eyelids normal Conjunctivae: conjunctivae normal Pupils: Equal, round and reactive pupils present EOM: EOMs intact bilaterally Neck Neck: Yes no lymphadenopathy and Yes supple Thyroid: Thyroid normal Resp Auscultation: clear to auscultation bilaterally, no rales and no wheezes Cardio Rate: regular rate Rhythm: regular rhythm Heart sounds: no murmurs GI Palpation (GI): Soft to palpation, nontender and No hepatosplenomegaly present Auscultation: normal bowel sounds General: Yes no CVA tenderness Back/Spine/Pelvis Back: no CVA tenderness Thoracic/Lumbar Spine: thoracic and lumbar spine normal to inspection Skin Lesions: no lesions Rashes: no rashes Neuro General: patient oriented x3, moves all extremities, no focal motor deficits and CN's II-XI intact bilaterally Cranial nerves: Yes Equal, round and reactive pupils present Cognition (Neuro): normal cognition Gait exam (Neuro): Normal gait present Extrem General: Yes no clubbing, cyanosis or edema Coding Level of Care Code Est Pt Prev Care 18-39y([id number]) Diagnoses Annual physical exam Z00.00 Fatigue, unspecified type R53.83 Fatigue type: unspecified Mild asthma, unspecified whether complicated, unspecified whether persistent J45.909 Asthma severity: mild Asthma persistence: unspecified Asthma complication type: unspecified Migraine without aura and without status migrainosus, not intractable G43.009 Migraine type: without aura Status migrainosus presence: without status migrainosus Intractability: not intractable Anxiety F41.9 Additional Codes PHQ-9 - 79149 - PHQ-9 Billing: Yes ([id number]) Assessment & Plan Assessment & Plan (1) Annual physical exam: Code(s): Z00.00 - Encounter for general adult medical examination without abnormal findings Category: Medical Plan: Check labs She is reportedly up-to-date with her annual gynecology exam and pap smear and has an appointment scheduled already for next year (2) Fatigue: Code(s): R53.83 - Other fatigue Category: Medical Qualifiers: Fatigue type: unspecified Qualified Code(s): R53.83 - Other fatigue Plan: Will send patient for some labs for further evaluation, including her CBC and TSH As she is a vegetarian, will also include tests for B12 level Have discussed with patient that if these come back normal, then it is very likely that her fatigue is at least in part due to her lack of sleep and she is advised to try going to bed even just an hour earlier than she normally does and it may make a big difference in her energy level (3) Asthma: Code(s): J45.909 - Unspecified asthma, uncomplicated Category: Medical Qualifiers: Asthma severity: mild Asthma persistence: unspecified Asthma complication type: unspecified Qualified Code(s): J45.909 - Unspecified asthma, uncomplicated Plan: Controlled - continue Albuterol HFA 1 to 2 inhalations Q 6 hours PRN (4) Migraine: Code(s): G43.909 - Migraine, unspecified, not intractable, without status migrainosus Category: Medical Qualifiers: Migraine type: without aura Status migrainosus presence: without status migrainosus Intractability: not intractable Qualified Code(s): G43.009 - Migraine without aura, not intractable, without status migrainosus Plan: Patient states that her headaches have also been well-controlled for a while now Reinforced again avoidance of any potential migraine triggers Continue Fioricet 1 capsule Q 6 to 8 hours PRN for headaches (5) Anxiety: Code(s): F41.9 - Anxiety disorder, unspecified Category: Medical Plan: Continue Sertraline 25 mg QD - states that her anxiety has been doing much better on her Rx and she's had no issues or side effects with Sertraline Plan To return in 1 year for her next annual physical examination Orders: Orders Complete Blood Count Auto Diff Today D64.9 - Anemia, unspecified, R53.83 - Other fatigue, Z00.00 - Encounter for general adult medical examination without abnormal findings Comprehensive Met. Panel Today R53.83 - Other fatigue, Z00.00 - Encounter for general adult medical examination without abnormal findings TSH reflex Free T4 Today E78.00 - Pure hypercholesterolemia, unspecified, R53.83 - Other fatigue, Z00.00 - Encounter for general adult medical examination without abnormal findings UA CC w/rflx Micro + Cult Today R30.0 - Dysuria, R53.83 - Other fatigue, Z00.00 - Encounter for general adult medical examination without abnormal findings Vitamin D 25-OH Total Today E55.9 - Vitamin D deficiency, unspecified, R53.83 - Other fatigue, Z00.00 - Encounter for general adult medical examination without abnormal findings Cholesterol Today R53.83 - Other fatigue, Z00.00 - Encounter for general adult medical examination without abnormal findings Vitamin B12 and Folate Today E53.8 - Deficiency of other specified B group vitamins, R53.83 - Other fatigue, Z00.00 - Encounter for general adult medical examination without abnormal findings
[2024-08-25 12:34] VITALS: BP 100/62; PULSE 92; O2SAT 98; BMI 21.8
== END 2024-08-25 13:01 | disposition home or self-care (01) ==
PROVIDERS: PCP Internal Medicine; Visit Provider Internal Medicine
DX: Z00.00 Encounter for general adult medical examination without abnormal findings (principal); R53.83 Other fatigue; J45.909 Unspecified asthma, uncomplicated; G43.009 Migraine without aura, not intractable, without status migrainosus; F41.9 Anxiety disorder, unspecified

== ENCOUNTER → 2024-08-25 12:23 | Outpatient (BNVA) | payer OTHER, SELFPAY | PROVIDERS: PCP Internal Medicine; Visit Provider Internal Medicine | DX: Z00.00 Encounter for general adult medical examination without abnormal findings (principal); R53.83 Other fatigue; F41.9 Anxiety disorder, unspecified; D64.0 Hereditary sideroblastic anemia; E55.9 Vitamin D deficiency, unspecified; G43.009 Migraine without aura, not intractable, without status migrainosus; J45.909 Unspecified asthma, uncomplicated | CPT/HCPCS: 96127; 99395 ==

== ENCOUNTER 2024-08-26 12:55 | Outpatient (REF) | payer OTHER, SELFPAY ==
[2024-08-26 13:07] LABS: MANUAL DIFF FLAG NO
[2024-08-26 13:45] LABS: Basophils Percent Auto 0.4 % (0-2); Eosinophils Absolute Auto 0.1 X10*3/uL (0.0-0.4); Eosinophils Percent Auto 0.8 % (0-4); Hematocrit 40.2 % (37.0-47.0); Hemoglobin 13.7 g/dl (12.0-16.0); Imm Gran Abs Auto 0.02 X10*3/uL (0.00-0.03); Imm Gran Pct Auto 0.2 % (0.0-0.4); Lymphocytes Absolute Auto 2.3 X10*3/uL (1.2-4.9); Mean Corpuscular HGB Conc 34.1 g/dl (31.0-35.0); Mean Corpuscular Hemoglobin 32.2 pg (27.0-33.0); Mean Corpuscular Volume 94.4 fL (80.0-98.0); Mean Platelet Volume 10.4 fL (9.4-12.3); Monocytes Absolute Auto 0.8 X10*3/uL (0.1-1.2); Neutrophils Absolute Auto 5.3 x10*3/uL (2.0-8.3); Neutrophils Percent Auto 62.6 % (45-73); Platelet Count 249 X10*3/uL (160-400); Red Blood Count 4.26 X10*6/uL (4.20-5.50); Red Cell Distribution Width 11.9 % (11.0-16.0); White Blood Count 8.4 X10*3/uL (4.8-10.8)
[2024-08-26 13:51] LABS: Appearance Urine Cloudy; Color Urine Yellow; Glucose Urine UA Negative (Negative); Leukocyte Esterase Urine Moderate (2+) (Negative); Nitrite Urine Negative (Negative); PH 5.5 (5.0-9.0); Specific Gravity - Urine <= 1.005 (1.005-1.025); UMIC TRIGGER UACC YES; Urine Blood Large (3+) (Negative); Urine Ketones Negative (Negative); Urine Protein Negative (Neg-Trace)
[2024-08-26 14:08] LABS: Bacteria Urine Trace (None Seen); Hyaline Casts Urine 0-2 /LPF (0-2); UACC Culture Trigger YES; WBC Urine 21-50 /HPF (0-5)
[2024-08-26 14:21] LABS: Alanine Aminotransferase 18 U/L (0-31); Albumin Level 4.3 g/dL (3.5-5.0); Alkaline Phosphatase 61 U/L (39-117); Anion Gap 7 (12-20); Aspartate Amino Transferase 26 U/L (5-31); Bilirubin Total 0.5 mg/dL (0.0-1.0); Blood Urea Nitrogen 11 mg/dL (9-16); Calcium 9.4 mg/dL (8.4-10.2); Carbon Dioxide 29 mmol/L (22-29); Chloride 106 mmol/L (96-108); Cholesterol 170 mg/dL (<200); Estimated Glomerular Filt Rate > 60; Glucose Random 123 mg/dL (60-115); Potassium 4.3 mmol/L (3.3-5.1); Sodium 138 mmol/L (135-145); Total Protein 7.2 g/dL (6.5-8.0)
[2024-08-26 14:38] LABS: TSH reflex Free T4 1.72 uIU/mL (0.32-4.0); Vitamin D 25-OH Total 37.3 ng/mL (>30)
[2024-08-26 14:43] LABS: Folate 14.8 ng/mL (> or = 4.0); Vitamin B12 379 pg/mL (200-900)
== END 2024-08-26 12:56 | disposition home or self-care (01) ==
LOC: HO.LAB 12:55
PROVIDERS: PCP Internal Medicine; Visit Provider Internal Medicine
DX: Z00.00 Encounter for general adult medical examination without abnormal findings (principal); R53.83 Other fatigue; E55.9 Vitamin D deficiency, unspecified; E53.8 Deficiency of other specified B group vitamins; D64.9 Anemia, unspecified; E78.00 Pure hypercholesterolemia, unspecified
CPT/HCPCS: 36415; 80053; 81001; 82306; 82465; 82607; 82746; 84443; 85025; 87086

== ENCOUNTER 2025-08-31 08:48 | Outpatient (AMB) | payer OTHER, SELFPAY ==
--- NOTE | 2025-08-31 08:50 | A.OFFPC_ITS ---
Vital Signs 08/31/25 08:54 Height 5 ft 6 in Weight 128 lb 4 oz BMI 20.7 BP 100/52 L Blood Pressure Location Lt brachial Position Sitting Respiration 12 Pulse 88 Pulse Source Pulse Oximeter Temp 97.1 F Temp Source Tympanic Pulse Oximetry (%) 99 Oxygen Delivery Method Room Air Intake Visit Reasons: Annual exam Allergies No Known Allergies (No Known Allergies*) Allergy (Verified 08/31/25 09:28) Medication List - Last Reconciled 08/31/25 by Jack Florian MD [id number] 50-300-40 mg 1 cap PO Q8H PRN levonorgestrel-ethinyl estrad 0.1-20 mg-mcg (Vienva) 1 tab PO DAILY sertraline 25 mg PO DAILY 30 days Ventolin HFA 90 mcg/actuation (albuterol sulfate) 2 puffs inhalation Q6H PRN 30 days NS Tobacco use date assessed: 08/25/24 Dental Screening Dental Screen Date: 08/25/24 HPI Annual exam HPI Details Patient comes in today for her annual physical examination States that she feels okay She denies any headaches or dizziness Denies any chest pains, no SOB No nausea/vomiting, no abdominal pain No change in bowel habits noted She denies any acute urinary symptoms Patient states that she is up-to-date with her annual gynecology exam and pap smear She is currently still taking Vienva for control and is still getting her Rx online States that her anxiety remains well-controlled on her current Rx of Sertraline 25 mg QD She has been a vegetarian for over 6 to 7 years now [facility] Medical History Anxiety Asthma Migraine Surgical History No pertinent past surgical history Family History Paternal Uncle Diabetes Other Bipolar 1 disorder Social History Housing: House Patient Tobacco Use Status: Never used Tobacco e-Cigarette/Vaping Use: Never Used service: No Current occupational status: employed Cognitive needs: No Hearing needs: No Vision needs: No Questionnaire PHQ-9 Over the last 2 weeks, how often have you been bothered by any of the following problems? 1. Little interest or pleasure in doing things: not at all 2. Feeling down, depressed, or hopeless: not at all 3. Trouble falling or staying asleep, or sleeping too much: not at all 4. Feeling tired or having little energy: several days 5. Poor appetite or overeating: not at all 6. Feeling bad about yourself - or that you are a failure or have let yourself or your family down: not at all 7. Trouble concentrating on things, such as reading the newspaper or watching television: not at all 8. Moving or speaking so slowly that other people could have noticed. Or the opposite - being so fidgety or restless that you have been moving around a lot more than usual: not at all 9. Thoughts that you would be better off or of hurting yourself in some way: not at all Total score: 1 Depression Screening Interpretation: Negative Depression Screening Done: Yes 74273 - PHQ-9 Billing: Yes Source: Developed by Drs. Sang Bell, Natalia Alvarez, Robinson Todd and colleagues, with an educational priti from [employer]. Thrive Questionnaire Date Thrive assessed: 08/31/25 I am a: Patient What is your living situation today?: I have a steady place to live Within the past 12 months, did the food you bought not last and you didn't have the money to get more?: Never true Within the past 12 months, did you worry whether your food would run out before you got money to buy more?: Never true Do you have trouble paying for medicines?: No Do you have trouble getting transportation to medical appointments?: No Do you have trouble paying your heating and electricity bill?: No Do you have trouble taking care of your child, family member or friend?: No Do you have trouble with day-to-day activities such as bathing, preparing meals, shopping, managing finances, etc.?: No Are you currently unemployed and looking for a job?: No Are you interested in more education?: No Please select the resources that you would like help with: None Currently or been in a relationship where the following occur: No concerns reported THRIVE Score: 0 AUDIT C Alcohol Use Questionnaire (AUDIT-C) 1. How often do you have a drink containing alcohol?: Never Total Score: 0 Score Reviewed/Action Taken: Yes ROBBI-7 AMB Questionnaire ROBBI-7 Date ROBBI - 7 assessed: 08/25/24 Feeling nervous, anxious, or on edge: 1 = Several days Not being able to stop or control worryin = Several days Worrying too much about different things: 1 = Several days Trouble relaxin = Several days Being so restless that it is hard to sit still: 1 = Several days Becoming easily annoyed or irritable: 2 = More than half the days Feeling afraid as if something awful might happen: 0 = Not at all Total ROBBI-7 score (0-4 normal; 5-9 mild; 10-14 moderate; 15-21 severe): 7 Source: Developed by Drs. Sang Bell, Natalia Alvarez, Robinson Todd and colleagues, with an educational priti from [employer]. Review of Systems Const Denies chills, Denies difficulty sleeping, Denies fatigue, Denies fever(s), Denies headache(s) and Denies malaise Eyes Denies blurry vision, Denies change in vision, Denies irritation and Denies itchy eyes ENT Denies dysphagia, Denies dizziness, Denies otalgia, Denies headache(s), Denies nasal congestion, Denies neck pain, Denies odynophagia, Denies sinus pain and Denies sore throat Card Denies chest pain, Denies rapid heart rate, Denies irregular heart rhythm, Denies palpitations and Denies dyspnea Resp Denies chest congestion, Denies cough, Denies dyspnea and Denies wheezing GI Denies abdominal pain, Denies bloating, Denies constipation, Denies dysphagia, Denies heartburn, Denies diarrhea, Denies nausea, Denies odynophagia and Denies vomiting Denies hematuria, Denies difficulty voiding, Denies dysuria, Denies urinary incontinence and Denies urinary urgency Musc Denies back pain, Denies arthralgias, Denies joint swelling, Denies muscle weakness and Denies neck pain Skin/Breast Denies breast pain, Denies breast mass, Denies change in pigmentation, Denies lesions, Denies rash and Denies unusual bruising Neuro Denies dizziness, Denies headache(s) and Denies paresthesias Psych Denies anxiety and Denies depression Endo Denies fatigue and Denies palpitations Angel/Lymph Denies easy bruising Aller/Immun Denies itchy eyes and Denies wheezing Physical exam (Primary Care) Vital Signs: Last Vital Signs Temp 97.1 F 08/31/25 08:54 Pulse 88 08/31/25 08:54 Resp 12 08/31/25 08:54 BP 100/52 L 08/31/25 08:54 Pulse Ox 99 08/31/25 08:54 Oxygen Delivery Method Room Air 08/31/25 08:54 BMI result Body Mass Index 20.7 Tobacco/Smoking Status: Tobacco use Status Tobacco use date assessed 08/25/24 08/31/25 08:55 Patient Tobacco Use Status Never used Tobacco 08/31/25 08:55 e-Cigarette/Vaping Use Never Used 08/31/25 08:55 PHQ-9: PHQ-9 Score PHQ-9: Total score 1 08/31/25 08:55 Depression Screening Interpretation: Negative Thrive Assessment: Date of Thrive Assessment Date Thrive assessed 08/31/25 08/31/25 08:55 Currently or been in a relationship where the following occur: No concerns reported Const General: no acute distress, alert and awake Orientation/consciousness: patient oriented x3 HENMT Head: Yes normocephalic and Yes atraumatic Ears: external ears normal, TM's normal bilaterally and EAC's normal General nose exam: No nasal discharge present Face and sinus: Yes normal facial exam and Yes sinuses nontender Teeth and gingiva: dentition normal Throat: Yes posterior oropharynx normal and Yes tonsils normal (no TP congestion) Eyes Eyelids: Yes eyelids normal Conjunctivae: conjunctivae normal Pupils: Equal, round and reactive pupils present EOM: EOMs intact bilaterally Neck Neck: Yes supple and No lymphadenopathy Thyroid: Thyroid normal Resp Auscultation: clear to auscultation bilaterally, no rales and no wheezes Cardio Rate: regular rate Rhythm: regular rhythm (but (+) ectopic beat every 3rd to 4th heartbeat) Heart sounds: no murmurs GI Palpation (GI): Soft to palpation, nontender and No hepatosplenomegaly present Auscultation: normal bowel sounds General: Yes no CVA tenderness Back/Spine/Pelvis Back: no CVA tenderness Thoracic/Lumbar Spine: thoracic and lumbar spine normal to inspection Skin Lesions: no lesions Rashes: no rashes Neuro General: patient oriented x3, moves all extremities, no focal motor deficits and CN's II-XI intact bilaterally Cranial nerves: Yes Equal, round and reactive pupils present Cognition (Neuro): normal cognition Gait exam (Neuro): Normal gait present Extrem General: Yes no clubbing, cyanosis or edema Coding Level of Care Code Est Pt Prev Care 18-39y(73774) Diagnoses Annual physical exam Z00.00 Ectopic heartbeat I49.49 Mild intermittent asthma without complication J45.20 Asthma severity: mild Asthma persistence: intermittent Asthma complication type: uncomplicated Migraine without aura and without status migrainosus, not intractable G43.009 Migraine type: without aura Status migrainosus presence: without status migrainosus Intractability: not intractable Anxiety F41.9 Additional Codes PHQ-9 - 66533 - PHQ-9 Billing: Yes ([id number]) Assessment & Plan Assessment & Plan (1) Annual physical exam: Code(s): Z00.00 - Encounter for general adult medical examination without abnormal findings Category: Medical Plan: Check labs BRIGIDA to complete her annual exam today She is reportedly up-to-date with her yearly gynecology exam and pap smear She is currently still on Vienva for control and she is just getting this as an online prescription (2) Ectopic heartbeat: Code(s): I49.49 - Other premature depolarization Category: Medical Plan: Will send patient for a 12-lead EKG for further evaluation (3) Asthma: Code(s): J45.909 - Unspecified asthma, uncomplicated Category: Medical Qualifiers: Asthma severity: mild Asthma persistence: intermittent Asthma com plication type: uncomplicated Qualified Code(s): J45.20 - Mild intermittent asthma, uncomplicated Plan: Controlled - she has had no exacerbations of her asthma at all in the past year or so Continue Albuterol HFA 1 to 2 inhalations Q 6 hours PRN (4) Migraine: Code(s): G43.909 - Migraine, unspecified, not intractable, without status migrainosus Category: Medical Qualifiers: Migraine type: without aura Status migrainosus presence: without status migrainosus Intractability: not intractable Qualified Code(s): G43.009 - Migraine without aura, not intractable, without status migrainosus Plan: Patient states that her headaches have also been well-controlled for a while now Reinforced again avoidance of any potential migraine triggers Continue Fioricet 1 capsule Q 6 to 8 hours PRN for headaches (5) Anxiety: Code(s): F41.9 - Anxiety disorder, unspecified Category: Medical Plan: Continue Sertraline 25 mg QD - states that her anxiety has been well-controlled on her Rx so far and she's had no issues or side effects with Sertraline Plan To return in 1 year for her next annual physical examination unless any of her labs or EKG come back with abnormal results that necessitate follow up appointments sooner Orders: Orders ECG 12 lead EKG Today I49.49 - Other premature depolarization, Z00.00 - Encounter for general adult medical examination without abnormal findings Comprehensive [place]. Panel Fast Today E78.00 - Pure hypercholesterolemia, unspecified, Z00.00 - Encounter for general adult medical examination without abnormal findings UA CC w/rflx Micro + Cult Today R30.0 - Dysuria, Z00.00 - Encounter for general adult medical examination without abnormal findings Complete Blood Count Auto Diff Today D64.9 - Anemia, unspecified, Z00.00 - Encounter for general adult medical examination without abnormal findings Lipid Panel Today E78.00 - Pure hypercholesterolemia, unspecified, Z00.00 - Encounter for general adult medical examination without abnormal findings TSH reflex Free T4 Today E78.00 - Pure hypercholesterolemia, unspecified, Z00.00 - Encounter for general adult medical examination without abnormal findings Vitamin D 25-OH Total Today E55.9 - Vitamin D deficiency, unspecified, Z00.00 - Encounter for general adult medical examination without abnormal findings Vitamin B12 and Folate Today E53.8 - Deficiency of other specified B group vitamins
[2025-08-31 08:54] VITALS: BP 100/52; PULSE 88; RESP 12; TEMP 36.2; O2SAT 99; BMI 20.7
== END 2025-08-31 09:36 | disposition home or self-care (01) ==
LOC: HO.HMCH 08:48
PROVIDERS: PCP Internal Medicine; Visit Provider Internal Medicine
DX: Z00.00 Encounter for general adult medical examination without abnormal findings (principal); I49.49 Other premature depolarization; J45.20 Mild intermittent asthma, uncomplicated; G43.009 Migraine without aura, not intractable, without status migrainosus; F41.9 Anxiety disorder, unspecified

== ENCOUNTER → 2025-08-31 08:48 | Outpatient (REF) | payer OTHER, SELFPAY ==
[2025-08-31 10:01] LABS: MANUAL DIFF FLAG NO
--- NOTE | 2025-08-31 10:06 | ECG_ITS ---
Test Reason : PREMATURE DEPOLARIZATION Blood Pressure : */* mmHG Vent. Rate : 78 BPM Atrial Rate : 78 BPM P-R Int : 138 ms QRS Dur : 92 ms QT Int : 366 ms P-R-T Axes : 48 78 19 degrees QTcB Int : 417 ms Normal sinus rhythm with sinus arrhythmia Normal ECG No previous ECGs available Referred By: Jack Florian Electronically Signed By: JEREMIAS CERVANTES MD
[2025-08-31 10:47] LABS: Hematocrit 39.9 % (37.0-47.0); Hemoglobin 13.3 g/dl (12.0-16.0); Imm Gran Abs Auto 0.01 X10*3/uL (0.00-0.03); Imm Gran Pct Auto 0.1 % (0.0-0.4); Lymphocytes Absolute Auto 2.4 X10*3/uL (1.2-4.9); Mean Corpuscular HGB Conc 33.3 g/dl (31.0-35.0); Mean Corpuscular Hemoglobin 32.0 pg (27.0-33.0); Mean Corpuscular Volume 95.9 fL (80.0-98.0); NRBC Abs Auto 0.000 X10*3/uL (0.0-0.012); NRBC Pct Auto 0.0 /100WBC (0.0-0.2); Platelet Count 219 X10*3/uL (160-400); Red Blood Count 4.16 X10*6/uL (4.20-5.50); White Blood Count 6.9 X10*3/uL (4.8-10.8)
[2025-08-31 11:13] LABS: Appearance Urine Clear; Glucose Urine UA Negative (Negative); PH 7.5 (5.0-9.0); Specific Gravity - Urine 1.015 (1.005-1.025); UMIC TRIGGER UACC YES
[2025-08-31 11:15] LABS: Alanine Aminotransferase 19 U/L (0-31); Albumin Level 4.5 g/dL (3.5-5.0); Alkaline Phosphatase 67 U/L (39-117); Anion Gap 11 (12-20); Aspartate Amino Transferase 35 U/L (5-31); Blood Urea Nitrogen 11 mg/dL (9-16); Calcium 9.2 mg/dL (8.4-10.2); Carbon Dioxide 26 mmol/L (22-29); Chloride 107 mmol/L (96-108); Cholesterol 169 mg/dL (<200); Estimated Glomerular Filt Rate > 60; HDL Cholesterol 55 mg/dL (>40); Potassium 4.3 mmol/L (3.3-5.1); Sodium 140 mmol/L (135-145); Total Protein 6.7 g/dL (6.5-8.0); Triglycerides 95 mg/dL (<150)
[2025-08-31 11:44] LABS: Folate 12.3 ng/mL (> or = 4.0); Vitamin B12 300 pg/mL (200-900)
== END ==
LOC: HO.CARD 08:48
PROVIDERS: PCP Internal Medicine; Visit Provider Internal Medicine
DX: Z00.00 Encounter for general adult medical examination without abnormal findings (principal); I49.49 Other premature depolarization; J45.20 Mild intermittent asthma, uncomplicated; G43.009 Migraine without aura, not intractable, without status migrainosus; F41.9 Anxiety disorder, unspecified; R30.0 Dysuria; D64.9 Anemia, unspecified; E78.00 Pure hypercholesterolemia, unspecified; E53.8 Deficiency of other specified B group vitamins; E55.9 Vitamin D deficiency, unspecified
CPT/HCPCS: 36415; 80053; 80061; 81001; 81003; 82306; 82607; 82746; 84443; 85025; 93005; 96127; 99395

== ENCOUNTER → 2025-08-31 10:06 | Outpatient (BNV) | payer OTHER, SELFPAY | PROVIDERS: PCP Internal Medicine; Visit Provider Internal Medicine Cardiovascular Disease | DX: I49.49 Other premature depolarization (principal) | CPT/HCPCS: 93010 ==